=== PATIENT | female | born 1975 | race Caucasian/White ===

== ENCOUNTER 2018-01-20 05:45 | Emergency (ER) | payer SELFPAY ==
[2018-01-20] MEDS ORDERED: Acetaminophen 500 MG TAB ONE (06:18)
[2018-01-20] MEDS ORDERED: Ketorolac Tromethamine 60 MG/2 ML VIAL ONE (07:30)
[2018-01-20 07:34] LABS: Bilirubin Negative (Negative); Blood, Urine Negative (Negative); Clarity CLEAR (Clear); Glucose, Urine (Dipstick) Negative (Negative); Leukocyte Negative (Negative); Nitrite Negative (Negative); Protein, Urine (Dipstick) Negative (Neg-Trace); Specific Gravity, Urine 1.015 (1.002-1.036); Urobilinogen 0.2 mg/dL (0.2-1.0)
[2018-01-20 07:39] LABS: Pregnancy Test - Urine (BHCG) Negative (Negative); Pregu Control Background? CLEAR/WHITE (CLR/WHITE); Pregu Control Bar Appear? YES (CONTROL BAR); Specific Gravity 1.015 (1.002-1.036)
[2018-01-20] MEDS ORDERED: predniSONE 20 MG TAB ONE (07:59)
--- NOTE | 2018-01-20 09:08 | RAD ---
PA AND LATERAL CHEST XRAY: DATE: 01/20/2018. HISTORY: Cough, body aches, and sore throat. COMPARISON: None available. FINDINGS: Postsurgical changes related to anterior cervical fusion lower cervical spine are noted. Cardiac chivo houette and pulmonary vasculature are within normal limits. The lungs are clear. Osseous structures are intact. IMPRESSION: No acute cardiopulmonary process. POS: [facility]
== END 2018-01-20 08:04 | disposition home or self-care (01) ==
LOC: ERS 05:45
DX: J40 Bronchitis, not specified as acute or chronic (principal); F90.9 Attention-deficit hyperactivity disorder, unspecified type; F32.9 Major depressive disorder, single episode, unspecified
CPT/HCPCS: 71046; 81003; 81025; 87804; 94640; 96372; J1885; J7506; J7620

== ENCOUNTER 2020-08-26 14:13 | Emergency (ER) | payer SELFPAY ==
[2020-08-26 16:53] LABS: #Basophils 0.1 thou/uL (0.0-0.2); #Eosinphils 0.2 thou/uL (0.0-0.7); #Lymphocytes 2.6 thou/uL (1.20-3.40); #Monocytes 0.9 thou/uL (0.11-0.59); #Neutrophils 6.1 thou/uL (1.40-6.50); %Lymphocytes 26.7 % (21.0-51.0); %Monocytes 8.8 % (0.0-10.0); %Neutrophils 61.5 % (42.0-75.0); Mean Corpuscular HGB CONC 32.6 g/dL (32.0-36.0); Mean Corpuscular Hemoglobin 31.7 pg (27.0-31.0); Mean Platelet Volume 7.3 fL (7.4-10.4); Platelet Count 338 thou/uL (130-400); RBC Distribution Width 12.4 % (11.5-14.5); Red Blood Cell (RBC) Count 4.11 mill/uL (4.20-5.40); White Blood Cell (WBC) Count 9.9 thou/uL (4.8-10.8)
[2020-08-26] MEDS ORDERED: Ketorolac Tromethamine 30 MG/ML VIAL ONE (16:53)
[2020-08-26] MEDS ORDERED: Fentanyl 100 MCG/2 ML VIAL ONE (16:53)
[2020-08-26] MEDS ORDERED: Ondansetron PF 4 MG/2 ML Vial ONE (16:53)
[2020-08-26 17:18] LABS: ALT (SGPT) 62 U/L (8-55); AST (SGOT) 56 U/L (5-34); Albumin 4.2 g/dL (3.5-5.0); Alkaline Phosphatase 119 U/L (40-110); Anion Gap 13 mmol/L (10-20); BUN (Urea Nitrogen) 6 mg/dL (7.0-18.7); Bilirubin, Total 0.6 mg/dL (0.2-1.2); CK (CPK) 312 U/L (29-168); Calc. Creatinine Clearance 0 mL/min (70-130); Calcium 9.4 mg/dL (7.8-10.44); Carbon Dioxide 25 mmol/L (22-29); Chloride 106 mmol/L (98-107); Glucose 90 mg/dL (70-105); Potassium 5.1 mmol/L (3.5-5.1); Protein, Total 7.2 g/dL (6.0-8.3); Sodium 139 mmol/L (136-145)
== END 2020-08-26 18:15 | disposition home or self-care (01) ==
LOC: ERS 14:13
DX: S80.221A Blister (nonthermal), right knee, initial encounter (principal)
CPT/HCPCS: 36415; 80053; 82550; 85025; 85652; 86140; 96374; 96375; J1885; J2405; J3010

== ENCOUNTER 2020-08-30 21:50 | Emergency (ER) | payer SELFPAY ==
[2020-08-30] MEDS ORDERED: Morphine 4 MG/ML VIAL ONE (23:48)
[2020-08-31] MEDS ORDERED: Bacitracin 1 PK ONE (00:07)
== END 2020-08-31 00:36 | disposition home or self-care (01) ==
LOC: ERS 21:50
DX: L03.115 Cellulitis of right lower limb (principal)
CPT/HCPCS: 96372; 99283; J2270

== ENCOUNTER 2021-03-27 14:07 | Emergency (ER) | payer SELFPAY ==
[2021-03-28 14:19] LABS: SARS-CoV-2 PCR by NAA DETECTED (NotDetected)
== END 2021-03-27 15:17 | disposition home or self-care (01) ==
LOC: ERS 14:07
DX: U07.1 COVID-19 (principal); J44.9 Chronic obstructive pulmonary disease, unspecified; Z79.899 Other long term (current) drug therapy
CPT/HCPCS: 87804; 99283; U0003; U0005

== ENCOUNTER 2021-08-07 14:23 | Emergency (ER) | payer OTHER ==
[2021-08-07] MEDS ORDERED: Ketorolac Tromethamine 30 MG/ML VIAL ONE (15:14)
[2021-08-07] MEDS ORDERED: Triple Antibiotic Oint 1 GM Packet ONE ×2 (16:02→16:04)
== END 2021-08-07 16:11 | disposition home or self-care (01) ==
LOC: ERS 14:23
DX: S83.92XA Sprain of unspecified site of left knee, initial encounter (principal); J44.9 Chronic obstructive pulmonary disease, unspecified; W17.2XXA Fall into hole, initial encounter
CPT/HCPCS: 96372; J1885